=== PATIENT | female | born 1940 | race Caucasian/White ===

== ENCOUNTER → 2018-07-28 | Outpatient (CLI) | payer MEDICARE, OTHER ==
[2014-09-27 10:41] VITALS: BMI 36.2
[~2018-07-28] MED LIST: ACET-1748 PO; ALLERGY SHOTS; ASPI-1 PO; ASPI-663 PO; BIS10S PR; CHOL400T26 PO; CYCL1DRO6 OU; CYCOD OP; ERG400 PO; Enoxaparin Sodium SC; FEXO180T74 PO; FEXO30TA36 PO; GLUC-198 PO; HYDR2TAB74 PO; MOM PO; MON10 PO; MUCINEX; NYST1POW TOP; OXYC-944 PO; VITAMIN C; VITAMIN PACK PO; WARF5VIA3 PO; Warfarin Sod PO; [UNRECOGNIZED DRUG - CODE] PO
--- NOTE | 2018-07-28 13:49 | RADIOLOGY IMAGING REPORT ---
FACILITY: [facility] - [place] PATIENT NAME: RIDDHI BANGURA : [id number] MR: [id number] V: [id number] EXAM DATE: [id number] ORDERING PHYSICIAN: HARRISON ROBLES TECHNOLOGIST: Latonya Mock PROCEDURE:BILATERAL DIGITAL SCREENING MAMMOGRAM WITH CAD ASSISTED INTERPRETATION & 3D TOMOSYNTHESIS COMPARISON:Prior mammograms 07/14/17, 07/06/16, 10/02/11. INDICATIONS:SCREENING FINDINGS: Small amount of fibroglandular tissue is seen throughout the breasts. The parenchymal pattern has remained stable allowing for difference in mammographic technique & patient positioning. There is no evidence of malignant appearing mass, malignant appearing calcifications or other secondary sign of malignancy in either breast. DIAGNOSTIC CATEGORY 1--NEGATIVE. RECOMMENDATIONS: ROUTINE MAMMOGRAM AND CLINICAL EVALUATION. IMPRESSION: BIRADS 1: Negative. No significant abnormality is seen. Dictated by: Apoorva Falcon M.D. on 07/28/2018 at 10:25 Transcribed by: JASON on 07/28/2018 at 10:29 Approved by: Apoorva Falcon M.D. on 07/28/2018 at 13:48 [facility]
== END ==
LOC: MAMO 01:45
PROVIDERS: ATTEND Nurse Practitioner Family
DX: Z12.31 Encounter for screening mammogram for malignant neoplasm of breast (principal)
CPT/HCPCS: 77063; 77067

== ENCOUNTER → 2018-12-30 | Outpatient (CLI) | payer MEDICARE, OTHER ==
[2014-09-27 10:41] VITALS: BMI 36.2
[~2018-12-30] MED LIST changes: +BIMA2.5D5 OP
[2018-12-30 08:47] LABS: PLATELET COUNT, AUTOMATED 228 K/uL (150-450)
--- NOTE | 2018-12-30 09:00 | EKG ---
[place] [facility] [place]IENT NAME: RIDDHI BANGURA : [id number] MR: [id number] V: [id number] EXAM DATE: ORDERING PHYSICIAN: CANDELARIA OWEN TECHNOLOGIST: ANDREI Test Reason : PRE OP Blood Pressure : / mmHG Vent. Rate : 079 BPM Atrial Rate : 079 BPM P-R Int : 164 ms QRS Dur : 082 ms QT Int : 364 ms P-R-T Axes : 042 012 043 degrees QTc Int : 417 ms Normal sinus rhythm Low voltage QRS Septal infarct , age undetermined Abnormal ECG When compared with ECG of 02-AUG-2018 03:17, T wave inversion no longer evident in Inferior leads Confirmed by BARBARA CASTILLO ([id number]) on 12/30/2018 10:54:17 PM Referred By: BRAYDEN Confirmed By:BARBARA CASTILLO
== END ==
LOC: LAB 08:32
PROVIDERS: ATTEND Orthopaedic Surgery
DX: Z01.810 Encounter for preprocedural cardiovascular examination (principal); R94.31 Abnormal electrocardiogram [ECG] [EKG]
CPT/HCPCS: 36415; 81001; 82040; 82247; 82310; 82374; 82435; 82565; 82947; 84075; 84132; 84155; 84295; 84450; 84460; 84520; 85025; 93005

== ENCOUNTER → 2019-01-19 | Outpatient (CLI) | payer MEDICARE, OTHER ==
[2014-09-27 10:41] VITALS: BMI 36.2
== END ==
LOC: NUC 00:53
PROVIDERS: ATTEND Nurse Practitioner Family
DX: Z02.9 Encounter for administrative examinations, unspecified (principal)

== ENCOUNTER → 2019-02-16 | Outpatient (CLI) | payer MEDICARE, OTHER ==
[2014-09-27 10:41] VITALS: BMI 36.2
[~2019-02-16] MED LIST changes: +REGADENOSON 0.4 MG/5 ML SYR ONE
--- NOTE | 2019-02-16 14:46 | RT STRESS TEST REPORT ---
FACILITY: [facility] PATIENT NAME: RIDDHI BANGURA : [id number] MR: [id number] V: [id number] EXAM DATE: ORDERING PHYSICIAN: HARRISON ROBLES TECHNOLOGIST: Elke Acquisition Time: 2019-02-16 14:29:12 Total Exercise Time: 00:01:00 Test Indications: Abnormal ECG Medications: see nuclear med sheet Protocol: LEXISCAN Max HR: 100 BPM 69% of Pred: 144 BPM Max BP: 142/072 mmHG Max Work Load: 1.0 METS Stress was performed using Lexiscan Protocol. She experienced some mild chest tightness with the infu juan francisco. No significant EKG changes were noted. A rare PVC was recorded. Await Myoview Images. Confirmed by ARIAS NAILS ([id number]) on 02/16/2019 2:45:34 PM Referred By: Overread By: ARIAS NAILS
--- NOTE | 2019-02-16 17:00 | RADIOLOGY IMAGING REPORT ---
FACILITY: [facility] - [place] PATIENT NAME: Jinny Carl : 1940 MR: [id number] V: [id number] EXAM DATE: ORDERING PHYSICIAN: HARRISON ROBLES TECHNOLOGIST: Location: [facility] [place] Patient: Jinny Carl : 1940 Visit/Account:[id number] Date of Sevice: 02/16/2019 EXAMINATION: Single isotope SPECT imaging with regadenoson infusion and gated SPECT imaging. DATE OF EXAMINATION: 02/16/2019. DATE OF INTERPRETATION: 02/16/2019. REQUESTING PHYSICIAN: HARRISON ROBLES. INDICATION: The patient is a 78-year-old female evaluated for abnormal ECG. PROCEDURE: After informed consent the patient received an intravenous injection of 11.8 mCi of Tc-99 m sestamibi followed at an appropriate time interval by rest imaging. The patient then subsequently received an intravenous infusion of 0.4 mg of regadenoson per protocol without complication. Resting heart rate was 82 bpm with a peak heart rate of 100 bpm. Blood pressure at rest was 126 / 67 and fo llowing infusion was 142 / 72. Baseline EKG demonstrates sinus rhythm with nonspecific ST/T wave abn ormality. There were no ischemic EKG changes following infusion, occasional PVCs were noted. Sympto ms were nonspecific. The patient then received an intravenous injection of 28.3 mCi of Tc-99m sestam ibi followed by stress imaging. RAW DATA: Examination of the summed raw data revealed a adequate quality study. MYOCARDIAL PERFUSION: The tomographic images demonstrate normal myocardial perfusion. GATED IMAGES: The gated images demonstrate normal LV wall motion and systolic function, LVEF is grea ter than 70%. IMPRESSION: 1. No ischemic ECG changes with Lexiscan. 2. Normal myocardial perfusion scan. 3. Normal LV systolic function; LVEF greater than 70%. 4. Based on the results of this exam, the patient appears to be at low risk for future cardiovascular events. Report Dictated By: Sukhwinder Brooks at 02/16/2019 4:35 PM Report E-Signed By: Sukhwinder Brooks at 02/16/2019 4:56 PM WSN:[id number]
== END ==
LOC: NUC 00:59
PROVIDERS: ATTEND Nurse Practitioner Family
DX: R94.31 Abnormal electrocardiogram [ECG] [EKG] (principal)
CPT/HCPCS: 78452; 93017; A9500; J2785

== ENCOUNTER → 2019-03-06 | Outpatient (CLI) | payer MEDICARE, OTHER ==
[2014-09-27 10:41] VITALS: BMI 36.2
[~2019-03-06] MED LIST changes: +ASCO-182 PO; +CHOL10005 PO; +LACT1CAP6 PO; +MELA1TAB2 PO; +MV-M1TAB57 PO; -REGADENOSON 0.4 MG/5 ML SYR ONE; +VIT-9 PO
[2019-03-06 15:32] LABS: PLATELET COUNT, AUTOMATED 274 K/uL (150-450)
--- NOTE | 2019-03-06 16:03 | RADIOLOGY IMAGING REPORT ---
FACILITY: [facility] PATIENT NAME: Jinny Carl : 1940 MR: [id number] V: [id number] EXAM DATE: ORDERING PHYSICIAN: HARRISON ROBLES TECHNOLOGIST: Location: [facility] [place] Patient: Jinny Carl : 1940 Visit/Account:[id number] Date of Sevice: 03/06/2019 EXAMINATION: Chest radiographs 2 views HISTORY: Chest pain, shortness of breath, congestion. COMPARISON: Chest radiograph from 07/13/2014 and CTA chest from 08/02/2018. FINDINGS: PA and lateral views of the chest are submitted. Lines/tubes: None. Lungs/pleura: No focal consolidation or pleural effusion. Small calcified right midlung nodule. Heart: Negative. Mediastinum: The aorta is mildly tortuous and calcified, unchanged. Bony structures/body wall: Mild degenerative changes of the thoracic spine. IMPRESSION: No radiographic evidence of acute cardiopulmonary disease. Report Dictated By: Sherry Sam MD at 03/06/2019 3:58 PM Report E-Signed By: Sherry Sam MD at 03/06/2019 4:00 PM WSN:[email or web address]
== END ==
LOC: LAB 15:15
PROVIDERS: ATTEND Nurse Practitioner Family
DX: R07.89 Other chest pain (principal); R09.02 Hypoxemia; J22 Unspecified acute lower respiratory infection
CPT/HCPCS: 36415; 71046; 82040; 82247; 82310; 82374; 82435; 82565; 82947; 83880; 84075; 84132; 84155; 84295; 84450; 84460; 84520; 85025; 85379; 86140

== ENCOUNTER → 2019-03-07 | Outpatient (CLI) | payer MEDICARE, OTHER ==
[2014-09-27 10:41] VITALS: BMI 36.2
[~2019-03-07] MED LIST changes: +IOPAMIDOL 76% 150 ML INFUS BTL 150 ML ONE; +NS(*) 0.9% 50 ML BAG 50 ML ONE
--- NOTE | 2019-03-07 14:49 | RADIOLOGY IMAGING REPORT ---
FACILITY: [facility] [place] PATIENT NAME: Jinny Carl : 1940 MR: [id number] V: [id number] EXAM DATE: ORDERING PHYSICIAN: HARRISON ROBLES TECHNOLOGIST: Location: [facility] Patient: Jinny Carl : 1940 Visit/Account:[id number] Date of Sevice: 03/07/2019 CT CTA CHEST W & W/O CON HISTORY: Shortness of breath and cough, elevated d-dimer ADDITIONAL HISTORY: None. TECHNIQUE: CTA chest with intravenous contrast. Axial imaging acquired following administration of IV contrast timed for maximum opacification of the pulmonary arterial vasculature. Slab 3-D MIP rhianna nstructed images were also created for further evaluation and interpretation. Reconstruction of the [place] data set includes multiplanar 2-D in the sagittal and coronal planes and 3-D reconstructed ravi nal slab MIP series. 3-D images were created by the technologist.Dose Lowering Technique One of the following dose optimization techniques was utilized in the performance of this exam: Autom ated exposure control; adjustment of the mA and/or kV according to the patient's size; or use of an i terative reconstruction technique. Specific details can be referenced in the facility's radiology C T exam operational policy. CONTRAST: 75 mL Isovue-370 COMPARISON: August 02, 2018, September 26, 2014 FINDINGS: Lungs/pleura: There is mild interstitial prominence in the dependent portion of the lungs. No evide nce of pleural effusions Heart/vessels: There is hypoperfusion of the lobar, segmental and subsegmental arterial branches in the right middle lobe. This appears similar to the prior CTA from September 26, 2014 and is likely chr onic. Calcifications of the mitral annulus again noted. There are coronary artery calcifications Mediastinum/lymph nodes: There Is a 2 x 1.4 cm pretracheal lymph node that appear unchanged. Is a 1. 6 x 0.5 cm AP window lymph node also appears unchanged Visualized upper abdomen: Incompletely imaged is an upper pole left renal cyst Bones/soft tissues: There extensive spondylotic changes of the thoracic spine and moderate degenerat madalyn changes of the right shoulder Additional findings: None IMPRESSION: There is hypoperfusion in the lobar, segmental and subsegmental arterial branches to the right middle lobe which appears similar to the prior CTA from September 26, 2014 and is likely chronic. There is mild interstitial prominence the dependent portion of the lungs. This may represent depende nt edema or atelectasis.. Mild mediastinal adenopathy is unchanged Report Dictated By: Apoorva Falcon MD at 03/07/2019 2:24 PM Report E-Signed By: Apoorva Falcon MD at 03/07/2019 2:45 PM WSN:[id number]
== END ==
LOC: CT 10:01
PROVIDERS: ATTEND Nurse Practitioner Family
DX: R07.89 Other chest pain (principal); R09.02 Hypoxemia; R59.0 Localized enlarged lymph nodes
CPT/HCPCS: 71275; J7050; Q9967

== ENCOUNTER 2019-03-21 02:03 | Inpatient (IN) | payer MEDICARE, OTHER ==
[2014-09-27 10:41] VITALS: Ht 160 cm; Wt 95.3 kg
[2019-03-20 16:41] LABS: INR 1.12
[~2019-03-21] VITALS: Ht 160 cm; Wt 95.3 kg
[2019-03-21] VITALS (15 sets, daily range): BP systolic 101–139; BP diastolic 57–79
[~2019-03-21 02:03] MED LIST changes: -IOPAMIDOL 76% 150 ML INFUS BTL 150 ML ONE; -NS(*) 0.9% 50 ML BAG 50 ML ONE
[2019-03-21] MEDS ORDERED: TRANEXAMIC AC 1000 MG/10ML SDV 1,000 MG in DEXTROSE 5% 50 ML BAG 50 ML IV ONE ×2 (09:30→12:30)
[2019-03-21] MEDS ORDERED: LIDOCAINE MPF 1% 5 ML VIAL ONE (10:12)
[2019-03-21] MEDS ORDERED: ROCURONIUM BROM 10 MG/ML 10 ML ONE (10:12)
[2019-03-21] MEDS ORDERED: DEXAMETHASONE SOD 4 MG/ML VIAL ONE (10:12)
[2019-03-21] MEDS ORDERED: PROPOFOL EMUL(*) 10MG/ML 20 ML 20 ML ONE (10:12)
[2019-03-21] MEDS ORDERED: ONDANSETRON 4 MG/2 ML VIAL ONE (10:12)
[2019-03-21] MEDS ORDERED: METOCLOPRAMIDE 10 MG/2 ML SDV ONE (10:12)
[2019-03-21] MEDS ORDERED: fentaNYL CITR 250 MCG/5 ML AMP ONE (10:13)
[2019-03-21] MEDS ORDERED: SUGAMMADEX SOD 200 MG/2 ML SDV ONE (10:22)
--- NOTE | 2019-03-21 11:01 | NUR ---
DISCUSSED POSTOP PAIN MEDICATION WITH PT, PT CONCERNED ABOUT TAKING MORPHINE DERIVED NARCOTICS D/T REACTION, ALSO CONCERNED ABOUT DEPENDENCY ISSUES. PT WILL DISCUSS THESE ISSUES WITH DR OWEN TO ENSURE PROPER CARE AND PAIN CONTROL ARE MET. PT ALSO REPORTED HAVING ITCHING TO SKIN WITH RASH, ESPECIALLY UNDER BREASTS AND GROIN AREA (DOES HAVE RX POWDER FOR THESE AREAS OF CONCERN THAT HELPS), PT REPORTS THINKING THIS RASH/ITCHING IS POSSIBLY D/T XARELTO SINCE THESE SYMPTOMS STARTED TO RESOLVE AFTER STOPPING XARELTO ON WEDNESDAY. WILL NOTIFY DR OWEN OF PT CONCERNS.
[2019-03-21] MEDS ORDERED: ROPIVACAINE 0.2% 20 ML VIAL ONE (12:15)
[2019-03-21] MEDS ORDERED: LIDO/EPI 2% MPF 1:200,000 20ML ONE (12:15)
[2019-03-21] MEDS ORDERED: PREGABALIN 75 MG CAPSULE PO ONE (12:30)
[2019-03-21] MEDS ORDERED: BACITRACIN 50000 UNIT/VIAL 100,000 UNIT in NS 0.9% 3000 ML IRRIGATION BAG 3,000 ML IR ONE (12:30)
[2019-03-21] MEDS ORDERED: NORMOSOL R SOLN(*) 1000 ML BAG 1,000 ML IV PRN (12:30)
[2019-03-21] MEDS ORDERED: CELECOXIB 200 MG CAP PO ONE (12:30)
[2019-03-21] MEDS ORDERED: ROPIVACAINE/EPI/CLONIDINE/KET 50 ML SYRINGE INJ ONE (12:30)
[2019-03-21] MEDS ORDERED: ACETAMINOPHEN 500 MG TAB PO ONE (12:30)
[2019-03-21] MEDS ORDERED: MIDAZOLAM 2 MG/2 ML VIAL IVP PRN (12:30)
[2019-03-21] MEDS ORDERED: ceFAZolin(*) 2GM/D5W 50ML 50 ML IVPB ONE (12:30)
[2019-03-21] MEDS ORDERED: FAMOTIDINE 20 MG TAB PO ONE (12:30)
[2019-03-21] MEDS ORDERED: LIDOCAINE/SOD BICARB 8.4% SYR ID ONE (12:30)
[2019-03-21] MEDS ORDERED: ePHEDrine 25 MG/5 ML DISP.SYR IVP ONE (13:48)
[2019-03-21] MEDS ORDERED: KETOROLAC 30 MG/ML VIAL ONE (15:48)
--- NOTE | 2019-03-21 15:59 | OPERATIVE REPORT 1 ---
EVENT DATE: March 21, 2019 SURGEON: Olivier Martin MD ANESTHESIOLOGIST: Glenn Soriano MD ANESTHESIA: General LMA. PARTNER: Milad Woodall PA-C PREOPERATIVE DIAGNOSIS Right shoulder osteoarthritis. POSTOPERATIVE DIAGNOSIS Right shoulder osteoarthritis. PROCEDURE PERFORMED Right total shoulder arthroplasty. FINDINGS The patient has a significant amount of arthritic changes associated with the glenohumeral joint and was amenable for a total shoulder replacement. ESTIMATED BLOOD LOSS About 150 mL. DRAINS None. COMPLICATIONS None. TOURNIQUET TIME Not applicable. IMPLANTS USED DePuy Global Unite total shoulder system with a size 10 stem with a size 10 body, a 48 x 18 standard head, and a 48 Three Brid[place] Peg glenoid. SPECIMENS None. INDICATIONS AND HISTORY This patient is a 78-year-old woman who presented to my clinic for evaluation of right shoulder pain and irritation going on for some time. She continued to have pain and irritation despite conservative management. She said she wanted to go ahead with a total shoulder replacement. We went over the risks and benefits associated with this. We told her there is no guarantee that it makes her better, but that she should get pretty good pain relief associated with it. We talked about how there is quite a bit of rehab associated with it, and since she is allergic to ALL PAIN MEDICATIONS, she may have some trouble and issues associated with the shoulder. DESCRIPTION OF PROCEDURE As the patient was brought in the operating room, she and the procedure were both verified. She was placed supine on the operating table and induced and intubated by Anesthesia. She was then put in a beach chair position. The right arm was prepped and draped in the usual fashion. A timeout was observed verifying the correct patient and procedure. The standard incision was made over the deltopectoral interval after anesthetizing the skin with lidocaine with epinephrine. I then went to the deltopectoral interval and was then able to identify the deltopectoral interval. I then moved the cephalic vein to the lateral side and went down to the clavipectoral fascia. Once I cleared off the clavipectoral fascia, I cauterized some bleeders in this area and then tenodesed the biceps to the pectoralis. Once I did this, I was then able to peel the subscapularis back and tag it for later repair. I was then able to gain access to the shoulder and dislocate the shoulder without any difficulty. Once I dislocated it, I then put a kayla into the top part of the humeral head and then utilized the reamers to go down into the shaft. The 10 mm reamer fit the best, and so therefore this was the one that was chosen. We then cut the head in accordance to the Global Unite cutting guide and then removed the head and used it for bone graft. I then put a into humeral head after removing the osteophytes and then subluxed the humerus posteriorly to the glenoid and had good glenoid exposure. I was then able to remove the labrum and the superior aspect of the biceps and the rest of the biceps tendon in this area. I then was to gain access to the glenoid and then drilled centrally. This was then followed by placement of the reamer, and then we reamed to a 48 mm reamer as that was the size of the head, and that was also the size of the glenoid. Once I reamed to a nice, smooth, concentric surface, I then was able to put the three peg holes and drilled those into the area and then trialed the Three Bridges Peg Glenoid. Once everything trialed well, we then mixed cement on the back table and then put some bone graft into the Three Bridges Peg Glenoid after opening it up on the back table and then cemented in the glenoid through the three peg holes and then bone graft in the central anchor peg and then held it in place while the cement hardened. Once the cement was hardened, we then removed all retractors and then turned attention back to the humerus. Once back on the humerus, I was able to use the 10 Brosteotome to then center the stem within the humerus itself. This was then followed by placement of the 18 head on top of the humeral stem that we had placed inside here and then relocated it. This had excellent tension associated with it, and it had excellent motion associated with it, and so therefore this was the final prosthesis chosen. We then removed that and packed the bone graft into the humerus to get it to have a good fit. I then passed six sutures through the lesser tuberosity in order to repair the subscapularis at a later time, put in the final prosthesis, checked it again, made sure it had good tension and overall fit. I repaired the subscapularis using the six sutures and then irrigated with copious amounts of saline, which we had throughout the case using Irrisept and a pulsatile lavage. This was then followed by closure of the deltopectoral interval using an 0 Quill. This was then followed by 2-0 Stratafix in the subcutaneous tissue and then a 4-0 Monocryl in the skin. A bio-occlusive dressing was then placed over the top of it, anesthetized with ropivacaine, and we also used a joint cocktail during the middle of the case. The patient was then awakened and extubated after dressings were put on and then transferred to the PACU in stable condition where she will be admitted overnight. GILLIAN
[2019-03-21] MEDS ORDERED: fentaNYL CITR 100 MCG/2 ML AMP ONE (16:07)
[2019-03-21] MEDS ORDERED: diphenhydrAMINE 50 MG/ML VIAL IVP PRN (16:10)
[2019-03-21] MEDS ORDERED: ZOLPIDEM TARTRATE 5 MG TAB PO PRN (16:10)
[2019-03-21] MEDS ORDERED: HYDROmorphone HCL 2 MG/ML SDV IVP PRN (16:10)
[2019-03-21] MEDS ORDERED: PROMETHAZINE 25 MG/ML 1 ML AMP IVP PRN (16:10)
[2019-03-21] MEDS ORDERED: ACETAMINOPHEN 500 MG TAB PO PRN (16:10)
[2019-03-21] MEDS ORDERED: MAGNESIUM CITRATE 300 ML BTL PO PRN (16:10)
[2019-03-21] MEDS ORDERED: LR 1000 ML BAG 1000 ML IV PRN (16:10)
[2019-03-21] MEDS ORDERED: MAGNESIUM HYDROXIDE* 30ML UDCP PO PRN (16:10)
[2019-03-21] MEDS ORDERED: BISACODYL 10 MG SUPP PR PRN (16:10)
[2019-03-21] MEDS ORDERED: ONDANSETRON 4 MG/2 ML VIAL IVP PRN (16:10)
[2019-03-21] MEDS ORDERED: diphenhydrAMINE 25 MG CAP PO PRN (16:10)
[2019-03-21] MEDS ORDERED: FLUSH 10 ML SYR IVP PRN (16:10)
--- NOTE | 2019-03-21 16:35 | RADIOLOGY IMAGING REPORT ---
FACILITY: [facility] [place] PATIENT NAME: Jinny Carl : 1940 MR: [id number] V: [id number] EXAM DATE: ORDERING PHYSICIAN: CANDELARIA OWEN TECHNOLOGIST: Location: [facility] [place] Patient: Jinyn Carl : 1940 Visit/Account:[id number] Date of Sevice: 03/21/2019 SHOULDER 1 VIEW RIGHT Indication: Shoulder surgery Comparison: 11/02/2018 Findings: Single view of the right shoulder demonstrates interval total right shoulder arthroplasty. Component s appear well seated without periprosthetic lucency or fracture. No findings for dislocation. Limited views of the right upper lung zone are unremarkable. Visualized right acromioclavicular joint is unremarkable. IMPRESSION: 1. Right shoulder arthroplasty without findings of complication Report Dictated By: Drew Machado MD at 03/21/2019 4:29 PM Report E-Signed By: Drew Machado MD at 03/21/2019 4:30 PM WSN:[id number]
[2019-03-21] MEDS ORDERED: MONTELUKAST SODIUM 10 MG TAB PO PRN (18:35)
--- NOTE | 2019-03-21 18:58 | Hospitalist Consultation ---
History of Present Illness Requesting Physician Dr. Martin History of Present Illness This patient was admitted for shoulder surgery. It is reported that the surgery went well and was without complication. History Problems: (1) Pulmonary embolism Status: Acute Home Meds Reported Medications Melatonin/Pyridoxine Hcl (B6) (MELATONIN 10 MG TABLET) 1 Each Tab.mphase, 1 EACH PO HS PRN for INSOMNIA 02/27/19 Ascorbic Acid (VITAMIN C) 500 Mg Tablet, 1000 MG PO DAILY, TAB 02/27/19 Lactobacillus Combination No.4 (PROBIOTIC) 1 Each Capsule, 1 EACH PO DAILY, CAPSULE 02/27/19 Cholecalciferol (Vitamin D3) (VITAMIN D3) 1,000 Unit Tablet, 1000 UNIT PO BID, TAB 02/27/19 Vit A/Vit C/Vit E/Zinc/Copper (PRESERVISION AREDS TABLET) 1 Each Tablet, 1 EACH PO BID 02/27/19 Mv-Mn/Folic Acid/Calcium/Vit K (Women's 50 Plus Multivit Tab) 400 Mcg-500 Mg Calcium-20 Mcg Tablet, 1 TAB PO DAILY 02/27/19 Montelukast Sodium (Singulair) 10 Mg Tab, 10 MG PO QHS PRN for ALLERGY SYMPTOMS, 0 Refills AT BEDTIME 11/17/11 Fexofenadine Hcl (Ava) 180 Mg Tablet, 180 MG PO QDAY PRN for ALLERGY SYMPTOMS, 0 Refills 11/17/11 Cyclosporine (Restasis 0.05%) 1 Ea Emul, 1 EA OP BID, [address] ONE DROP IN EACH EYE, ONE DROPPERETTE IS TO BE USED FOR BOTH EYES 11/17/11 Allergies: Coded Allergies: codeine (Verified Allergy, Intermediate, ITCHING, 02/27/19) hydrocodone (Verified Allergy, Intermediate, SEVERE ITCHING, 02/27/19) oxycodone (Verified Allergy, Intermediate, ITCHING, N/V, DECREASED APPETITE, DPRESSION, 02/27/19) Patient History: Patient reports no known family medical history. Hx Smoking: No Smoking Status: Never Smoker Caffeine Intake: Soda Caffeine/Cups Per Day: DECAF ONLY Hx Alcohol Use: No (rarely- couple times a year) Hx Substance Use Disorder: No Social Drug Use: Never History of IV Drug Use: No Review of Systems All Systems Reviewed/Normal: Yes Exam Vital Signs Vital Signs Date Time Temp Pulse Resp B/P (MAP) Pulse Ox O2 Delivery O2 Flow Rate FiO2 03/21/19 17:45 90 20 135/79 (97) 91 Room Air 03/21/19 17:30 3.0 03/21/19 16:42 97.4 Eyes: PERRLA Cardiovascular: Regular Rate and Rhythm Respiratory: Clear to Auscultation GI: Abd Soft and Non-Tender Extremities: No Edema Integumentary: No Cyanosis Assessment and Plan Problems: (1) S/P shoulder surgery Venous Thromboembolism Antithrombotics Is Pt On Any Antithrombotics?: No BARBARA CASTILLO DO Mar 21, 2019 18:58
[2019-03-21] MEDS: cycloSPORINE 0.05% EMUL 1 DROP OU SCH (21:19)
[2019-03-21] MEDS: ceFAZolin(*) 2GM/D5W 50ML 50 ML IVPB SCH (21:56)
[2019-03-21] MEDS ORDERED: KETOROLAC 30 MG/ML VIAL IVP PRN (22:00)
[2019-03-22] MEDS: ceFAZolin(*) 2GM/D5W 50ML 50 ML IVPB SCH (05:25)
[2019-03-22] MEDS: cycloSPORINE 0.05% EMUL 1 DROP OU SCH (09:06)
--- NOTE | 2019-03-22 10:48 | Hospitalist Progress Note ---
Subjective Progress Notes Subjective She was admitted s/p shoulder surgery. She had no acute events overnight. She would like to go home today. Patient Complains of: Cardiovascular: No: Chest Pain Respiratory: No: Shortness of Breath Physical Exam Vital Signs Date Time Temp Pulse Resp B/P (MAP) Pulse Ox O2 Delivery O2 Flow Rate FiO2 03/22/19 09:19 93 Room Air 03/21/19 23:00 101/57 (72) 03/21/19 23:00 81 03/21/19 23:00 98.1 18 03/21/19 20:49 2.0 Intake and Output 03/22/19 01:00 Intake Total 2600 ml Output Total 150 ml Balance 2450 ml Intake Oral 500 ml IV Total 2100 ml Output Estimated Blood Loss 150 ml # Voids 2 General Appearance: Alert, Awake, No Acute Distress, Afebrile Neuro: No Gross deficits Cardiovascular: Regular Rate and Rhythm Respiratory: No Respiratory Distress, Clear to Auscultation Psych: Alert & Oriented X3, Appropriate Mood & Affect Result Diagram: 03/22/19 0537 Assessment and Plan Problems: (1) S/P shoulder surgery Status: Acute Assessment & Plan: Followed by Dr. Huizar. She will go home today. Exam Sepsis Risk: No Definite Risk CAROLYN DEAL MARTIAL [employer]S INSTRUCTOR March 22, 2019 10:48
--- NOTE | 2019-03-22 11:39 | NUR ---
Occupational Therapy Impression Pt alert and agreeable to OT tx. Reviewed precautions, ther ex per protocol, wear/fit of sling, ADLs, and f/u with Dr. Martin/outpatient PT appt. Pt reporting no pain. SpO2 WNL on room air. Pt reporting Dr. Martin has cleared pt to have appt. at [facility] prior to follow-up with Dr. Martin. Pt spouse present for education and plans to assist as needed. Pt and spouse with no further questions/concerns at end of tx. Ready for discharge when medically appropriate. Occupational Therapy Goals Patient's Goal
== END 2019-03-22 11:15 | disposition home or self-care (01) | DRG 483 ==
LOC: OR 02:03 → MED 16:40 → OBSVTOIN 16:40
PROVIDERS: ADMIT Orthopaedic Surgery; ATTEND Orthopaedic Surgery
PROC: 0RRJ0JZ Replacement of Right Shoulder Joint with Synthetic Substitute, Open Approach (ICD-10-PCS; principal; 2019-03-21 13:19)
DX: M19.011 Primary osteoarthritis, right shoulder (principal); Z96.653 Presence of artificial knee joint, bilateral; Z88.5 Allergy status to narcotic agent; Z86.711 Personal history of pulmonary embolism
CPT/HCPCS: 36415; 85014; 85018; 85610; 86850; 86900; 86901; 97165; J0690; J1100; J1885; J2001; J2405; J2704; J2765; J2795; J3010